=== PATIENT | male | born 1960 | race African-American/Black ===

== ENCOUNTER 2017-02-03 06:13 | Emergency (ER) | payer MEDICARE, MEDICAID ==
[~2017-02-03] VITALS: Ht 167.6 cm; Wt 63.5 kg
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
[2017-02-03] MEDS ORDERED: HYDROmorphone 2 MG/ML VIAL IV ONE (07:15)
[2017-02-03] MEDS ORDERED: ONDANSETRON PF 4 MG/2 ML VIAL. IV ONE (07:15)
[2017-02-03] MEDS ORDERED: LIDOCAINE 2% 20 ML VIAL. IJ ONE (07:15)
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
[2017-02-03] MEDS ORDERED: BACI28.34 TP (07:46)
[2017-02-03] MEDS ORDERED: HYDR-2758 PO (07:46)
[2017-02-03 08:25] VITALS: BP 188/98
== END 2017-02-03 08:54 | disposition home or self-care (01) ==
LOC: ER 06:13
DX: S01.411A Laceration without foreign body of right cheek and temporomandibular area, initial encounter (principal); S01.81XA Laceration without foreign body of other part of head, initial encounter; I10 Essential (primary) hypertension; F17.210 Nicotine dependence, cigarettes, uncomplicated; Z88.0 Allergy status to penicillin; Y08.09XA Assault by strike by other specified type of sport equipment, initial encounter; Y93.89 Activity, other specified; Y99.8 Other external cause status; Y92.89 Other specified places as the place of occurrence of the external cause
CPT/HCPCS: 12011; 70486; 96374; 96375; 99284; J1170; J2405; J2001